=== PATIENT | female | born 1970 | race Caucasian/White ===

== ENCOUNTER 2016-03-14 18:14 | Emergency (ER) | payer MEDICAID ==
[~2016-03-14] VITALS: Ht 167.6 cm; Wt 40.5 kg
[2016-03-14 18:16] VITALS: BP 185/101; PULSE 107; RESP 14; TEMP 98.1; O2SAT 93
--- NOTE | 2016-03-15 23:54 | EKG ---
Date Performed: 03/14/2016 Time Performed: 18:27:18 PTAGE: 45 years EKG: Sinus rhythm LEFT ATRIAL ENLARGEMENT ABNORMAL ECG INTERPRETATION BASED ON A DEFAULT AGE OF 41 YEARS NO PREVIOUS TRACING DOCTOR: Kirt Severino Interpretating Date/Time 03/15/2016 23:47:20
== END 2016-03-14 18:50 | disposition left against medical advice (07) ==
LOC: NED 18:14
DX: Z53.21 Procedure and treatment not carried out due to patient leaving prior to being seen by health care provider (principal); R94.31 Abnormal electrocardiogram [ECG] [EKG]
CPT/HCPCS: 93005; 99281

== ENCOUNTER 2016-06-02 01:17 | Observation (INO) | payer MEDICAID ==
[~2016-06-02] VITALS: Ht 165.1 cm; Wt 47.0 kg
[2016-06-02 01:21] VITALS: BP 170/101; PULSE 138; RESP 20; TEMP 100.7; O2SAT 92
[2016-06-02] MEDS ORDERED: SODIUM CHLOR 0.9% 1000 ML INJ 800 ML IV ONE (02:16)
[2016-06-02] MEDS ORDERED: SODIUM CHLOR 0.9% 1000 ML INJ 1,000 ML IV ONE (02:16)
[2016-06-02] MEDS ORDERED: [UNRECOGNIZED DRUG - CODE] (02:24)
[2016-06-02] MEDS ORDERED: SERO100T PO (02:24)
[2016-06-02] MEDS ORDERED: XANA1TAB2 PO (02:24)
[2016-06-02] MEDS ORDERED: TRAZ150T75 PO (02:24)
[2016-06-02] MEDS ORDERED: ONDANSETRON HCL 4 MG/2 ML VIAL IV ONE (02:30)
[2016-06-02] MEDS ORDERED: ACETAMINOPHEN 650 MG SUPP RECTAL ONE (02:30)
--- NOTE | 2016-06-02 02:54 | RADRPT ---
EXAM DATE/TIME: 06/02/2016 02:31 [facility] COMPARISON: CHEST SINGLE AP, March 09, 2016, 3:02. INDICATIONS : Fever. MEDICAL HISTORY : Lupus. SURGICAL HISTORY : None. ENCOUNTER: Initial ACUITY: 1 day PAIN SCORE: 0/10 LOCATION: Bilateral chest FINDINGS: A single view of the chest demonstrates the lungs to be symmetrically aerated without evidence of mas s, infiltrate or effusion. The cardiomediastinal contours are unremarkable. Osseous structures are intact. CONCLUSION: No acute disease. Darwin Nino MD on June 02, 2016 at 2:52 Board Certified Radiologist. This report was verified electronically.
[2016-06-02 03:04] LABS: BASOPHIL % 0.3 % (0.0-2.0); EOSINOPHIL % 0.2 % (0.0-4.0); HEMATOCRIT 33.3 % (35.0-46.0); HEMO FLAGS DIFF FINAL; LYMPH % 3.5 % (9.0-44.0); LYMPHOCYTE # 0.6 TH/MM3 (1.0-4.8); MEAN CELL VOLUME 84.7 FL (80.0-100.0); MEAN CORPUSCULAR HEMOGLOBIN 30.2 PG (27.0-34.0); MEAN CORPUSCULAR HGB CONC 35.6 % (32.0-36.0); MONO % 4.9 % (0.0-8.0); NEUT % 91.1 % (16.0-70.0); PLATELET COUNT 241 TH/MM3 (150-450); RED BLOOD COUNT 3.93 MIL/MM3 (4.00-5.30); RED CELL DISTRIBUTION WIDTH 14.8 % (11.6-17.2); WHITE BLOOD COUNT 17.5 TH/MM3 (4.0-11.0)
[2016-06-02 03:13] LABS: APTT (PATIENT) 27.9 SEC (24.3-30.1); INTERNATIONAL NORMALIZED RATIO 1.1 RATIO
[2016-06-02 03:18] VITALS: RESP 18; O2SAT 95
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
[2016-06-02] MEDS ORDERED: HYDROmorphone HCL PF 1 MG/ML VIAL IV PUSH ONE (03:30)
[2016-06-02] MEDS ORDERED: diphenhydrAMINE HCL 50 MG/ML VIAL IV PUSH ONE (03:30)
[2016-06-02 03:36] LABS: ALKALINE PHOSPHATASE 190 U/L (45-117); ALT (GPT) 28 U/L (10-53); ANION GAP 9 MEQ/L (5-15); AST (GOT) 31 U/L (15-37); BICARBONATE 23.8 MEQ/L (21.0-32.0); BLOOD UREA NITROGEN 15 MG/DL (7-18); CHLORIDE 102 MEQ/L (98-107); GLOMERULAR FILTRATION RATE 94 ML/MIN (>89); MAGNESIUM 1.4 MG/DL (1.5-2.5); SODIUM (NA) 135 MEQ/L (136-145); TOTAL BILIRUBIN ADULT 0.5 MG/DL (0.2-1.0)
[2016-06-02 03:41] LABS: CREATINE KINASE 64 U/L (26-192); POTASSIUM 3.5 MEQ/L (3.5-5.1)
[2016-06-02 04:00] VITALS: BP 162/92; PULSE 102; RESP 18; O2SAT 96
[2016-06-02] MEDS ORDERED: CEFEPIME INJ 2,000 MG in SODIUM CHLORIDE 0.9% INJ 100 ML IV STA (04:08)
[2016-06-02] MEDS ORDERED: VANCOMYCIN INJ 1,500 MG in SODIUM CHLORID 0.9% 500 ML INJ 500 ML IV STA (04:08)
[2016-06-02] MEDS ORDERED: VANCOMYCIN INJ 1,000 MG in SODIUM CHLOR 0.9% 250 ML INJ 250 ML IV ONE (04:15)
[2016-06-02] MEDS: RESP: ALBUTEROL 2.5 MG/3 ML NEB (SCH) INH (04:24)
[2016-06-02] MEDS ORDERED: SODIUM CHLORIDE 0.9% FLUSH 10 ML FLUSH IV FLUSH PRN (04:30)
[2016-06-02] MEDS ORDERED: Vancomycin Consult Pharmacy 1 EA OTHER SCH (04:30)
[2016-06-02] MEDS ORDERED: NALOXONE HCL 0.4 MG/ML AMP IV PRN (04:30)
[2016-06-02 07:13] VITALS: BP 107/56; PULSE 87; RESP 18; O2SAT 95
[2016-06-02 07:43] LABS: BLOOD, URINE NEG (NEG); GLUCOSE,URINE NEG (NEG); HYALINE CAST, URINE 8 /lpf (RARE); KETONE, URINE NEG (NEG); MUCUS URINE MANY /lpf (OCC); NITRITE,URINE NEG (NEG); SQUAMOUS EPITHELIAL CELL URINE 12 /hpf (0-5); URINE COLOR YELLOW (YELLW/STRAW)
[2016-06-02 07:47] LABS: COMMENT (UR) CATH-CULT NOT IND; CULTURE IF INDICATED CATH CULTURE NOT IND
[2016-06-02] MEDS ORDERED: SODIUM CHLORIDE 0.9% FLUSH 10 ML FLUSH IV FLUSH SCH (09:00)
[2016-06-02] MEDS ORDERED: ENOXAPARIN SODIUM 40 MG/0.4 ML SYRINGE SQ SCH (09:00)
[2016-06-02] MEDS ORDERED: ACETAMINOPHEN 325 MG TAB PO PRN (10:45)
--- NOTE | 2016-06-02 13:57 | EKG ---
Date Performed: 06/02/2016 Time Performed: 02:14:17 PTAGE: 46 years EKG: SINUS TACHYCARDIA ABNORMAL RHYTHM ECG Compared to the PREVIOUS TRACING sinus rate has increased PREVIOUS TRACIN03/14/2016 18.27 DOCTOR: Grey Anders Interpretating Date/Time 06/02/2016 13:56:52
[2016-06-02] MEDS ORDERED: CEFEPIME INJ 2,000 MG in SODIUM CHLORIDE 0.9% INJ 100 ML IV SCH (17:00)
[2016-06-02] MEDS ORDERED: VANCOMYCIN 1,000 MG/NS 250 ML IV SCH ×2 (18:00)
[2016-06-04] MEDS ORDERED: PHARMACY ORDERED LAB XX ONE (05:45)
== END 2016-06-04 06:26 | disposition home or self-care (01) ==
LOC: NEPE 01:17 → NEDA 04:29 → INTOOBSV 04:29 → NEDA 10:38
PROVIDERS: ADMIT Family Medicine; ATTEND Family Medicine
DX: F19.10 Other psychoactive substance abuse, uncomplicated (principal); R20.9 Unspecified disturbances of skin sensation; J44.9 Chronic obstructive pulmonary disease, unspecified; I25.2 Old myocardial infarction; Z86.73 Personal history of transient ischemic attack (TIA), and cerebral infarction without residual deficits; Z85.89 Personal history of malignant neoplasm of other organs and systems; Z86.19 Personal history of other infectious and parasitic diseases; Z72.0 Tobacco use; M32.9 Systemic lupus erythematosus, unspecified; B19.20 Unspecified viral hepatitis C without hepatic coma
CPT/HCPCS: 71010; 80053; 81001; 82550; 83605; 83690; 83735; 84484; 85025; 85610; 85730; 87040; 93005; 94640; 94664; 96361; 96374; 96375; 99285; G0378; J0692; J1170; J1200; J2405; J3370; J7030; J7040; J7613

== ENCOUNTER 2016-11-07 00:46 | Inpatient (IN) | payer MEDICAID ==
[2016-11-07] VITALS (7 sets, daily range): BP systolic 105–161; BP diastolic 54–78; PULSE 93–119; RESP 16–32; TEMP 98.4–99.2; O2SAT 94–98
[~2016-11-07 00:46] MED LIST: SERO100T PO; TRAZ150T75 PO; XANA1TAB2 PO; [UNRECOGNIZED DRUG - CODE]
[2016-11-07] MEDS ORDERED: IOHEXOL 350 MG/ML 10 ML VIAL (for RAD DIAG) IVCONTRAST ONE (00:47)
[2016-11-07] MEDS ORDERED: SODIUM CHLOR 0.9% 1000 ML INJ 800 ML IV ONE (00:50)
[2016-11-07] MEDS ORDERED: CEFEPIME INJ 2,000 MG in SODIUM CHLORIDE 0.9% INJ 100 ML IV STA (00:50)
[2016-11-07] MEDS ORDERED: SODIUM CHLOR 0.9% 1000 ML INJ 1,000 ML IV ONE (00:50)
[2016-11-07] MEDS ORDERED: VANCOMYCIN INJ 1,000 MG in SODIUM CHLOR 0.9% 250 ML INJ 250 ML IV STA (00:50)
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
--- NOTE | 2016-11-07 02:08 | RADRPT ---
EXAM DATE/TIME: 11/07/2016 01:49 [facility] COMPARISON: CHEST SINGLE AP, June 02, 2016, 2:31. INDICATIONS : Short of breath. MEDICAL HISTORY : Lupus. SURGICAL HISTORY : None. ENCOUNTER: Initial ACUITY: 1 day PAIN SCORE: 0/10 LOCATION: Bilateral chest FINDINGS: Portable AP view of the chest demonstrates a normal-sized cardiac silhouette. No effusion, consolidat ion, or pneumothorax is visualized. The bones and soft tissues demonstrate no acute abnormality. Ther e is a nipple shadow on the left. CONCLUSION: No acute cardiopulmonary abnormality is identified. Clayton Corley MD on November 07, 2016 at 2:05 Board Certified Radiologist. This report was verified electronically.
[2016-11-07 02:17] LABS: BACTERIA, URINE RARE /hpf; BLOOD, URINE NEG (NEG); GLUCOSE,URINE NEG (NEG); KETONE, URINE NEG (NEG); NITRITE,URINE NEG (NEG); PH, URINE 7.5 (5.0-8.5); URINE COLOR YELLOW (YELLW/STRAW)
[2016-11-07 02:18] LABS: COMMENT (UR) CATH-CULTURE IND; CULTURE IF INDICATED CATH CULTURE IND
[2016-11-07 02:21] LABS: BASOPHIL % 0.2 % (0.0-2.0); EOSINOPHIL % 0.1 % (0.0-4.0); HEMATOCRIT 44.1 % (35.0-46.0); HEMO FLAGS DIFF FINAL; LYMPH % 2.8 % (9.0-44.0); LYMPHOCYTE # 0.3 TH/MM3 (1.0-4.8); MEAN CELL VOLUME 87.3 FL (80.0-100.0); MEAN CORPUSCULAR HEMOGLOBIN 29.4 PG (27.0-34.0); MEAN CORPUSCULAR HGB CONC 33.7 % (32.0-36.0); MONO % 0.3 % (0.0-8.0); NEUT % 96.6 % (16.0-70.0); PLATELET COUNT 299 TH/MM3 (150-450); RED BLOOD COUNT 5.05 MIL/MM3 (4.00-5.30); RED CELL DISTRIBUTION WIDTH 16.3 % (11.6-17.2); WHITE BLOOD COUNT 10.3 TH/MM3 (4.0-11.0)
[2016-11-07 02:32] LABS: ALT (GPT) 40 U/L (10-53); ANION GAP 9 MEQ/L (5-15); AST (GOT) 77 U/L (15-37); BICARBONATE 26.9 MEQ/L (21.0-32.0); BLOOD UREA NITROGEN 19 MG/DL (7-18); CHLORIDE 104 MEQ/L (98-107); GLOMERULAR FILTRATION RATE 50 ML/MIN (>89); POTASSIUM 3.1 MEQ/L (3.5-5.1); SODIUM (NA) 140 MEQ/L (136-145)
[2016-11-07 02:35] LABS: ALKALINE PHOSPHATASE 394 U/L (45-117); TOTAL BILIRUBIN ADULT 0.9 MG/DL (0.2-1.0)
[2016-11-07] MEDS ORDERED: LORazepam 2 MG/ML VIAL IV PUSH ONE (04:00)
[2016-11-07 04:12] LABS: LACTIC ACID GHOST NOT REPORTABLE
--- NOTE | 2016-11-07 04:36 | RADRPT ---
EXAM DATE/TIME: 11/07/2016 03:59 [facility] COMPARISON: No previous studies available for comparison. INDICATIONS : Abdominal pain with diarrhea. IV CONTRAST: 70 cc Omnipaque 350 (iohexol) IV ORAL CONTRAST: No oral contrast ingested. RADIATION DOSE: 4.79 CTDIvol (mGy) MEDICAL HISTORY : Lupus. Chronic obstructive pulmonary disease. Myocardial infarction.CVA. Throat cancer. Substance abu se. Hepatitis C. SURGICAL HISTORY : Cholecystectomy. Oopherectomy. ENCOUNTER: Initial ACUITY: 1 day PAIN SCALE: 6/10 LOCATION: Bilateral abdomen TECHNIQUE: Volumetric scanning of the abdomen and pelvis was performed. Using automated exposure control and ad justment of the mA and/or kV according to patient size, radiation dose was kept as low as reasonably achievable to obtain optimal diagnostic quality images. DICOM format image data is available electro nically for review and comparison. FINDINGS: There is respiratory motion artifact. LOWER LUNGS: The visualized lower lungs are clear. LIVER: Homogeneous density without lesion. There is no dilation of the biliary tree. There has been prior cholecystectomy clips in the gallbladder fossa. Possible mild periportal edema. SPLEEN: Normal size without lesion. PANCREAS: Within normal limits. KIDNEYS: Normal in size and shape. There is no mass, stone or hydronephrosis. ADRENAL GLANDS: Within normal limits. VASCULAR: There is no aortic aneurysm. BOWEL/MESENTERY: Stomach is mildly distended and second and proximal third portion the duodenum are mildly dilated. Re maining small bowel demonstrates no definite abnormality. No colon abnormality is appreciated. There is no free intraperitoneal air or fluid. ABDOMINAL WALL: Within normal limits. RETROPERITONEUM: There is no lymphadenopathy. BLADDER: No wall thickening or mass. REPRODUCTIVE: Within normal limits. There is a clip in the left pelvis. INGUINAL: There is no lymphadenopathy or hernia. MUSCULOSKELETAL: No acute abnormality. CONCLUSION: 1. No definite abnormality is identified to explain the clinical symptoms. There may be mild periport al edema. 2. Mildly distended stomach and proximal duodenum. Clayton Corley MD on November 07, 2016 at 4:30 Board Certified Radiologist. This report was verified electronically.
--- NOTE | 2016-11-07 04:38 | RADRPT ---
EXAM DATE/TIME: 11/07/2016 03:59 [facility] COMPARISON: No previous studies available for comparison. INDICATIONS : Osteomyelitis. RADIATION DOSE: CTDIvol (mGy) ; Reconstructed from previous dataset, no dose MEDICAL HISTORY : Chronic obstructive pulmonary disease. Myocardial infarction. Lupus.Hepatitis C. Substance abuse. CVA . Throat cancer. SURGICAL HISTORY : Cholecystectomy. Oophorectomy. ENCOUNTER: Initial ACUITY: 1 day PAIN SCALE: 6/10 LOCATION: lumbar TECHNIQUE: Volumetric scanning of the lumbar spine was performed. Multiplanar reconstructions in the sagittal, coronal and oblique axial planes were performed. Using automated exposure control and adjustment of the mA and/or kV according to patient size, radiation dose was kept as low as reasonably achievable t o obtain optimal diagnostic quality images. DICOM format image data is available electronically for review and comparison. FINDINGS: VERTEBRAE: Normal vertebral body height. No fracture or compression deformity. ALIGNMENT: There is no anterolisthesis or retrolisthesis. T12-L1: No disc herniation, canal stenosis, or neural foraminal stenosis is identified. L1-L2: No disc herniation, canal stenosis, or neural foraminal stenosis is identified. L2-L3: No disc herniation, canal stenosis, or neural foraminal stenosis is identified. L3-L4: No disc herniation, canal stenosis, or neural foraminal stenosis is identified. L4-L5: No disc herniation, canal stenosis, or neural foraminal stenosis is identified. L5-S1: No disc herniation, canal stenosis, or neural foraminal stenosis is identified. CONCLUSION: 1. There are no findings to indicate osteomyelitis or discitis. 2. No canal stenosis is identified. Clayton Corley MD on November 07, 2016 at 4:35 Board Certified Radiologist. This report was verified electronically.
--- NOTE | 2016-11-07 04:54 | RADRPT ---
EXAM DATE/TIME: 11/07/2016 04:04 [place] COMPARISON: No previous studies available for comparison. INDICATIONS : Osteomyelitis. RADIATION DOSE: 30.87 CTDIvol (mGy) MEDICAL HISTORY : Chronic obstructive pulmonary disease. Myocardial infarction. Lupus.Substance abuse. CVA. Hepatitis C . Throat cancer. SURGICAL HISTORY : Cholecystectomy. Oophorectomy. ENCOUNTER: Initial ACUITY: 1 day PAIN SCALE: 6/10 LOCATION: thoracic TECHNIQUE: Volumetric scanning of the thoracic spine was performed. Multiplanar reconstructions in the sagittal , coronal and oblique axial planes were performed. Using automated exposure control and adjustment o f the mA and/or kV according to patient size, radiation dose was kept as low as reasonably achievable to obtain optimal diagnostic quality images. DICOM format image data is available electronically f or review and comparison. FINDINGS: There is abnormal diffuse increased density within the T6 and T7 vertebral bodies. There is height lo ss of both vertebral bodies with fusion between the vertebral bodies. There are endplate osteophytes. The height loss and fusion results in kyphotic hyperangulation at this level. There is a 14 mm lucen t area within the right T7 vertebral body which may represent a hemangioma. There is decreased disc h eight with endplate osteophytes at C6-C7. T1-T2: No disc herniation, canal stenosis, or neural foraminal stenosis is identified. T2-T3: No disc herniation, canal stenosis, or neural foraminal stenosis is identified. T3-T4: No disc herniation, canal stenosis, or neural foraminal stenosis is identified. T4-T5: No disc herniation, canal stenosis, or neural foraminal stenosis is identified. T5-T6: No disc herniation, canal stenosis, or neural foraminal stenosis is identified. T6-T7: No disc herniation, canal stenosis, or neural foraminal stenosis is identified. T7-T8: No disc herniation, canal stenosis, or neural foraminal stenosis is identified. T8-T9: No disc herniation, canal stenosis, or neural foraminal stenosis is identified. T9-T10: No disc herniation, canal stenosis, or neural foraminal stenosis is identified. T10-T11: No disc herniation, canal stenosis, or neural foraminal stenosis is identified. T11-T12: No disc herniation, canal stenosis, or neural foraminal stenosis is identified. T12-L1: No disc herniation, canal stenosis, or neural foraminal stenosis is identified. There is mild emphysema in the upper lobes. CONCLUSION: 1. Abnormal increased density with height loss and osseous fusion between the T6 and T7 vertebral bod ies. The appearance suggests old discitis osteomyelitis. There is associated focal kyphosis at this l evel. 2. Remaining levels demonstrate no acute finding. Clayton Corley MD on November 07, 2016 at 4:47 Board Certified Radiologist. This report was verified electronically.
[2016-11-07] MEDS ORDERED: BISACODYL 10 MG SUPP RECTAL PRN (05:00)
[2016-11-07] MEDS ORDERED: LACTULOSE SYRUP 20 GM/30 ML CUP PO PRN (05:00)
[2016-11-07] MEDS ORDERED: ACETAMINOPHEN 325 MG TAB PO PRN (05:00)
[2016-11-07] MEDS ORDERED: SENNOSIDES 8.6 MG TAB PO PRN (05:00)
[2016-11-07] MEDS ORDERED: ONDANSETRON HCL 4 MG/2 ML VIAL IVP PRN (05:00)
[2016-11-07] MEDS ORDERED: MAGNESIUM HYDROXIDE SUSP 30 ML CUP PO PRN (05:00)
[2016-11-07] MEDS ORDERED: POTASSIUM CHLORIDE 20 MEQ CONTROLLED RELEASE TAB PO ONE (05:00)
[2016-11-07] MEDS ORDERED: SODIUM CHLORIDE 0.9% FLUSH 10 ML FLUSH IV FLUSH PRN (05:00)
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
[2016-11-07] MEDS: SODIUM CHLOR 0.9% 1000 ML INJ 1,000 ML IV SCH ×2 (07:57→17:25)
[2016-11-07] MEDS: SODIUM CHLORIDE 0.9% FLUSH 10 ML FLUSH IV FLUSH SCH ×2 (09:00→19:57)
[2016-11-07] MEDS: DOCUSATE SODIUM 50 MG/SENNA 8.6 MG TAB PO SCH ×2 (09:00→19:57)
[2016-11-07] MEDS: LORazepam 2 MG/ML VIAL IV PUSH PRN ×2 (10:35→17:57)
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
[2016-11-07] MEDS: metroNIDAZOLE 500 MG TAB PO SCH ×2 (14:18→22:12)
--- NOTE | 2016-11-07 15:23 | EKG ---
Date Performed: 11/07/2016 Time Performed: 00:53:58 PTAGE: 46 years EKG: SINUS TACHYCARDIA WITH SHORT [place] INTERVAL WITH OCCASIONAL SUPRAVENTRICULAR PREMATURE COMPLEX ES POSSIBLE LEFT ATRIAL ENLARGEMENT INDETERMINATE AXIS ST DEVIATION AND MODERATE T-WAVE ABNORMALITY, CONSIDER ANTERIOR ISCHEMIA. When compared to previous tracing, sinus rate has slowed. Anterior T wave changes are new, consider ischemia. ABNORMAL ECG PREVIOUS TRACING : 06/02/2016 02.14 DOCTOR: Grey Anders Interpretating Date/Time 11/07/2016 15:22:45
[2016-11-08] MEDS: LORazepam 2 MG/ML VIAL IV PUSH PRN ×5 (00:10→23:16)
[2016-11-08] MEDS: SODIUM CHLOR 0.9% 1000 ML INJ 1,000 ML IV SCH ×3 (00:17→21:00)
[2016-11-08 03:52] LABS: C. DIFF EPI 027 PRESUMPTIVE NEGATIVE (NEGATIVE)
[2016-11-08 04:11] VITALS: BP 101/59; PULSE 87; RESP 17; TEMP 98; O2SAT 97
[2016-11-08 05:16] LABS: AUTOMATED NEUTROPHIL # 31.3 TH/MM3 (1.8-7.7); BASOPHIL % 0.1 % (0.0-2.0); EOSINOPHIL # 0.1 TH/MM3 (0-0.4); EOSINOPHIL % 0.2 % (0.0-4.0); HEMATOCRIT 33.3 % (35.0-46.0); LYMPHOCYTE # 2.1 TH/MM3 (1.0-4.8); MEAN CELL VOLUME 87.5 FL (80.0-100.0); MEAN CORPUSCULAR HGB CONC 33.1 % (32.0-36.0); MONO % 3.4 % (0.0-8.0); NEUT % 90.3 % (16.0-70.0); PLATELET COUNT 225 TH/MM3 (150-450); RED BLOOD COUNT 3.81 MIL/MM3 (4.00-5.30); RED CELL DISTRIBUTION WIDTH 16.6 % (11.6-17.2); WHITE BLOOD COUNT 34.7 TH/MM3 (4.0-11.0)
[2016-11-08] MEDS: metroNIDAZOLE 500 MG TAB PO SCH ×3 (05:16→21:14)
[2016-11-08 05:41] LABS: ANION GAP 7 MEQ/L (5-15); AST (GOT) 26 U/L (15-37); BLOOD UREA NITROGEN 20 MG/DL (7-18); CHLORIDE 111 MEQ/L (98-107); GLOMERULAR FILTRATION RATE 84 ML/MIN (>89); POTASSIUM 3.2 MEQ/L (3.5-5.1); SODIUM (NA) 141 MEQ/L (136-145)
[2016-11-08 05:44] LABS: ALKALINE PHOSPHATASE 192 U/L (45-117); ALT (GPT) 23 U/L (10-53); TOTAL BILIRUBIN ADULT 0.3 MG/DL (0.2-1.0)
[2016-11-08 05:49] LABS: HEMO FLAGS AUTO DIFF
[2016-11-08] MEDS ORDERED: POTASSIUM CHLORIDE 20 MEQ CONTROLLED RELEASE TAB PO ONE (06:45)
[2016-11-08 07:35] VITALS: BP 112/71; PULSE 87; RESP 16; TEMP 98.1; O2SAT 95
[2016-11-08 08:01] LABS: BANDS 12 % (0-6); NEUTROPHIL # MANUAL DIFF 32.6 TH/MM3 (1.8-7.7); PLATELET ESTIMATE SMEAR NORMAL (NORMAL); PLATELET MORPHOLOGY NORMAL (NORMAL); POLYS (SEG NEUTROPHILS) 82 % (16-70); SCAN/DIFF FINAL DIFF MANUAL; WBC DIFF SAMPLE 100
[2016-11-08] MEDS: MAGNESIUM SULFATE 1 GM PREMIX 100 ML IV SCH ×2 (08:26→09:32)
[2016-11-08] MEDS: DOCUSATE SODIUM 50 MG/SENNA 8.6 MG TAB PO SCH ×2 (09:00→21:14)
[2016-11-08] MEDS: SODIUM CHLORIDE 0.9% FLUSH 10 ML FLUSH IV FLUSH SCH ×2 (09:00→21:00)
--- NOTE | 2016-11-08 09:15 | HHI.PR ---
Subjective Remarks Follow up for abdominal pain, diarrhea. The patient reports feeling better today. Denies any fevers/chills. Abdominal pain improved. She had 2 large BMs yesterday which started out as diarrhea, now becoming more formed. Denies nausea /vomiting. Denies any worsening back pain. Denies any chest pain, shortness of breath, cough, or congestion. She is requesting regular diet. Of note, multiple records received from [facility], in chart. Objective Vitals Vital Signs Date Time Temp Pulse Resp B/P (MAP) Pulse Ox O2 Delivery O2 Flow Rate FiO2 11/08/16 07:35 98.1 87 16 112/71 (85) 95 11/08/16 04:11 98.0 87 17 101/59 (73) 97 11/07/16 23:59 98.9 94 17 108/71 (83) 96 11/07/16 19:57 98.8 93 18 161/69 (99) 94 11/07/16 11:51 98.4 98 19 111/67 (82) 98 I/O 11/07/16 11/07/16 11/07/16 11/08/16 11/08/16 11/08/16 07:00 15:00 23:00 07:00 15:00 23:00 Intake Total 1350 ml 240 ml 942 ml Output Total 350 ml Balance 1350 ml -110 ml 942 ml Intake Oral 240 ml IV Total 1350 ml 942 ml Output Urine Total 350 ml # Voids 1 2 # Bowel Movements 1 1 Result Diagram: 11/08/16 0451 11/08/16 0451 Other Results Records from [facility]: 10/18/16 - Transthoracic Echocardiogram normal left ventricular function, EF 55-60 % Aortic Valve: Aortic valve leaflets are mildly thickened. There is no evidence of aortic regurgitation. There is no evidence of aortic stenosis. There is no aortic vegetation present. Mitral valve: The mitral valve leaflets are mildly thickened. There is mild mitral regurgitation. There is no evidence of mitral stenosis. No vegetation is observed on the mitral valve. Tricuspid valve: The tricuspid valve leaflets are mildly thickened. There is mild to moderate tricuspid regurgitation. The right ventricular systolic pressure is calculated at 41 mmHg. There is no tricuspid stenosis. A mass is visualized on the tricuspid valve which appears consistent with a vegetation. Pulmonic valve: The pulmonic valve is not well-visualized. There is no evidence of pulmonic regurgitation. There is no pulmonic stenosis. Pericardium: Pericardium appears normal. 10/17/16 - CTA chest: No evidence of pulmonary embolus or other acute intrathoracic pathology. Findings again compatible with advanced discitis/ osteomyelitis at T6-7 with interval evolution/healing. 10/17/16 - MRI T-Spine: Interval decrease in the extent of abnormal contrast enhancement involving the T6-7 vertebral bodies, where discitis/osteomyelitis changes were demonstrated on 05/23/16 and 04/30/16. Progressive disk space collapse at the T6/7 level with associated progressive focal kyphosis. Abnormal enhancing ventral epidural soft tissue centered at the T6-7 level, has decreased in extent since the prior exam. No cord compression at this level or elsewhere within the thoracic spine. No new areas of abnormal marrow signal intensity. No thoracic spinal cord pathology demonstrated. Persistent T6-7 neural foraminal stenosis. 10/20/16 - Nuclear medicine scan: Subtle minimal uptake in the thoracic spine likely in the region of the T6-7 vertebral bodies likely corresponds to uptake within previously demonstrated osteomyelitis/discitis at this level. Imaging Last Impressions Thoracic Spine CT 11/07/16255 Signed Impressions: Service Date/Time: Monday, November 07, 2016 04:04 - CONCLUSION: 1. Abnormal increased density with height loss and osseous fusion between the T6 and T7 vertebral bodies. The appearance suggests old discitis osteomyelitis. There is associated focal kyphosis at this level. 2. Remaining levels demonstrate no acute finding. Clayton Corley MD Lumbar Spine CT 11/07/16 0256 Signed Impressions: Service Date/Time: Monday, November 07, 2016 03:59 - CONCLUSION: 1. There are no findings to indicate osteomyelitis or discitis. 2. No canal stenosis is identified. Clayton Corley MD Abdomen/Pelvis CT 11/07/16 0256 Signed Impressions: Service Date/Time: Monday, November 07, 2016 03:59 - CONCLUSION: 1. No definite abnormality is identified to explain the clinical symptoms. There may be mild periportal edema. 2. Mildly distended stomach and proximal duodenum. Clayton Corley MD Chest X-Ray 11/07/16 0050 Signed Impressions: Service Date/Time: Monday, November 07, 2016 01:49 - CONCLUSION: No acute cardiopulmonary abnormality is identified. Clayton Corley MD Objective Remarks GENERAL: Thin cachectic appearing female patient in NAD. SKIN: Warm and dry. No rash. HEENT: Normocephalic. Atraumatic.Pupils equal and round. Mucous membranes pink and moist. CARDIOVASCULAR: Regular rate and rhythm. S1, S2 noted. No murmur appreciated. RESPIRATORY: No accessory muscle use. Clear to auscultation. Breath sounds equal bilaterally. GASTROINTESTINAL: Abdomen soft, non-tender, nondistended. Normoactive bowel sounds x4. MUSCULOSKELETAL: No obvious deformities. Extremities without clubbing, cyanosis , or edema. NEUROLOGICAL: Awake and alert. No obvious cranial nerve deficits. Motor grossly within normal limits. Normal speech. PSYCHIATRIC: Appropriate mood and affect; insight and judgment normal. Medications and IVs Current Medications Medications (Trade) Dose Ordered Sig/Misty Route Start Time Stop Time Status Last Admin Sodium Chloride 1,000 ml @ 100 mls/hr Q10H IV 11/07/16 05:00 11/08/16 00:17 (NS Flush) 2 ml UNSCH PRN IV FLUSH 11/07/16 05:00 (NS Flush) 2 ml BID IV FLUSH 11/07/16 09:00 (Zofran Inj) 4 mg Q6H PRN IVP 11/07/16 05:00 (Tylenol) 650 mg Q6H PRN PO 11/07/16 05:00 (Alissa-Colace) 1 tab BID PO 11/07/16 09:00 (Milk Of Magnesia Liq) 30 ml Q12H PRN PO 11/07/16 05:00 (Senokot) 17.2 mg Q12H PRN PO 11/07/16 05:00 (Dulcolax Supp) 10 mg DAILY PRN RECTAL 11/07/16 05:00 (Lactulose Liq) 30 ml DAILY PRN PO 11/07/16 05:00 (Ativan Inj) 1 mg Q2H PRN IV PUSH 11/07/16 05:00 11/08/16 06:12 (Roxicodone) 5 mg Q6H PRN PO 11/07/16 09:45 11/08/16 06:13 (Flagyl) 500 mg Q8HR PO 11/07/16 14:00 11/08/16 05:16 Magnesium Sulfate/ Dextrose 100 ml @ 100 mls/hr Q1H IV 11/08/16 08:00 11/08/16 09:59 A/P Problem List: (1) Intractable abdominal pain ICD Code: R10.9 - Unspecified abdominal pain (2) IVDU (intravenous drug user) ICD Code: F19.90 - Other psychoactive substance use, unspecified, uncomplicated (3) H/O osteomyelitis ICD Code: Z87.39 - Personal history of other diseases of the musculoskeletal system and connective tissue (4) Lactic acidosis ICD Code: E87.2 - Acidosis (5) Hypokalemia ICD Code: E87.6 - Hypokalemia Assessment and Plan 46-year-old female with a PMH of Anxiety, Lupus, IVDU w/ Dilaudid and Cocaine, h /o Endocarditis and h/o Osteomyelitis/Diskitis who was brought to the ER by EMS secondary to complaints of severe abdominal pain x3 days w/ intermittent episodes of diarrhea. Intractable Abdominal Pain/Diarrhea: CT Abd/Pelvis w/ no acute abnormalities, mildly distended stomach and duodenum, images reviewed by me. Initially on clear liquids, symptoms improved Advanced diet to regular. Continue IVF, antiemetics prn, oxycodone 5mg q6h prn; caution w/ analgesics secondary to IVDU w/ Dilaudid. Cdiff negative. Stool cultures pending. ID empirically initiated abx with Flagyl and started Lactinex. Symptoms improving. Tricuspid Valve Endocarditis: Records reviewed from , 10/18/16 Transthoracic Echocardiogram normal left ventricular function, EF 55-60%, A mass is visualized on the tricuspid valve which appears consistent with a vegetation. Blood cultures in records negative x5days at . Blood cultures here with 1/4 gram variable organism. Consider SHONA? Discussed with ID Dr. Vides. Start on IV Vanco with pharmacy consult. Sepsis: Leukocytosis 35K with tachycardia, source-endocarditis as above. Lactic acid 3.1 --> 1.8. On IVF. Urine culture negative. Blood culture with gram variable organism, continue to follow. Stool with no WBCs, culture pending. ID on board, appreciate recommendations. H/o Discitis/Osteomyelitis: H/o T6-T7 diskitis/osteomyelitis, recent admit to [facility] 10/16/16 w/ MRI T-spine showing improved diskitis/osteomyelitis, evaluated by NxSx w/ conservative management and by ID w/ broad spectrum antibiotics. Pt LEFT AMA prior to completion of therapy. CT T-Spine w/ old chronic diskitis/osteomyelitis of T6-7. Afebrile, no leukocytosis. ID following, appreciate recommendations. IVDU: Ongoing, w/ Dilaudid/Cocaine. H/o Endocarditis. Blood cultures as above. Oxycodone prn. Hypokalemia/Hypomagnesemia: K+ 3.1, Mag 1.6, replaced. Continue to monitor and replace as needed. Tobacco Abuse: Pt counselled. Ativan/NicoDerm prn if needed. DVT Prophylaxis: SCD/Teds. Discharge Planning Admit to inpatient with endocarditis. Megan Silva PA-C Nov 08, 2016 09:15
[2016-11-08 11:37] VITALS: PULSE 88
[2016-11-08 12:26] VITALS: BP 116/76; PULSE 79; RESP 18; TEMP 98.2; O2SAT 97
[2016-11-08] MEDS ORDERED: Vancomycin Consult Pharmacy 1 EA OTHER SCH (12:45)
[2016-11-08] MEDS: REMOVE OLD PATCH T-DERMAL SCH (14:15)
[2016-11-08 14:46] LABS: AUTOMATED NEUTROPHIL # 29.6 TH/MM3 (1.8-7.7); BASOPHIL # 0.1 TH/MM3 (0-0.2); BASOPHIL % 0.2 % (0.0-2.0); EOSINOPHIL # 0.2 TH/MM3 (0-0.4); EOSINOPHIL % 0.5 % (0.0-4.0); HEMATOCRIT 33.5 % (35.0-46.0); LYMPH % 5.1 % (9.0-44.0); LYMPHOCYTE # 1.7 TH/MM3 (1.0-4.8); MEAN CELL VOLUME 87.3 FL (80.0-100.0); MEAN CORPUSCULAR HEMOGLOBIN 27.9 PG (27.0-34.0); MONO % 2.6 % (0.0-8.0); NEUT % 91.6 % (16.0-70.0); PLATELET COUNT 253 TH/MM3 (150-450); RED BLOOD COUNT 3.84 MIL/MM3 (4.00-5.30); RED CELL DISTRIBUTION WIDTH 16.7 % (11.6-17.2); WHITE BLOOD COUNT 32.4 TH/MM3 (4.0-11.0)
[2016-11-08 14:54] LABS: HEMO FLAGS AUTO DIFF
[2016-11-08] MEDS: NICOTINE 21 MG/24 HR PATCH T-DERMAL SCH (15:15)
[2016-11-08] MEDS: VANCOMYCIN INJ 750 MG in SODIUM CHLOR 0.9% 250 ML INJ 250 ML IV SCH (15:16)
[2016-11-08 15:53] VITALS: PULSE 88
[2016-11-08 16:05] LABS: BANDS 6 % (0-6); NEUTROPHIL # MANUAL DIFF 29.8 TH/MM3 (1.8-7.7); POLYS (SEG NEUTROPHILS) 86 % (16-70); WBC DIFF SAMPLE 100
[2016-11-08 16:06] LABS: DOHLE BODIES PRESENT (NONE SEEN); PLATELET ESTIMATE SMEAR NORMAL (NORMAL); PLATELET MORPHOLOGY NORMAL (NORMAL); SCAN/DIFF FINAL DIFF MANUAL
[2016-11-08 20:44] VITALS: BP 145/91; PULSE 86; RESP 18; TEMP 97.8; O2SAT 96
[2016-11-09] MEDS: VANCOMYCIN INJ 750 MG in SODIUM CHLOR 0.9% 250 ML INJ 250 ML IV SCH (03:36)
[2016-11-09] MEDS: LORazepam 2 MG/ML VIAL IV PUSH PRN ×3 (04:14→11:05)
[2016-11-09 04:59] VITALS: BP 160/95; PULSE 77; RESP 18; TEMP 97.8; O2SAT 99
[2016-11-09] MEDS: metroNIDAZOLE 500 MG TAB PO SCH (06:36)
[2016-11-09] MEDS: SODIUM CHLOR 0.9% 1000 ML INJ 1,000 ML IV SCH (06:40)
[2016-11-09] MEDS: NICOTINE 21 MG/24 HR PATCH T-DERMAL SCH (08:09)
[2016-11-09] MEDS: REMOVE OLD PATCH T-DERMAL SCH (08:11)
[2016-11-09] MEDS: DOCUSATE SODIUM 50 MG/SENNA 8.6 MG TAB PO SCH (08:11)
[2016-11-09] MEDS: SODIUM CHLORIDE 0.9% FLUSH 10 ML FLUSH IV FLUSH SCH (08:11)
[2016-11-09 08:14] VITALS: BP 144/96; PULSE 75; RESP 17; TEMP 97.2; O2SAT 96
[2016-11-09 11:55] VITALS: BP 158/95; PULSE 84; RESP 18; TEMP 97.3; O2SAT 97
[2016-11-09] MEDS ORDERED: CEFEPIME INJ 2,000 MG in SODIUM CHLORIDE 0.9% INJ 100 ML IV SCH (13:00)
--- NOTE | 2016-11-09 13:20 | PD.AMA ---
Against Medical Advice Note Diagnosis: (1) Intractable abdominal pain (2) IV drug user Discharge Disposition: Against Medical Advice Pt Condition on Discharge: Stable Recommended Treatment Course It was recommended to patient for patient to continue treatment while hospitalized. Patient was educated extensively on the consequences of not completing treatment without further workup. Due to concerns of infection I recommended the patient stay hospitalized. I told patient that if this is not treated properly infection can spread and may lead to . Patient stated that she understood but still wants to leave AGAINST MEDICAL ADVICE. Patient's nurse was present during the interview. AMA Statement Patient Sonia Bond has decided to leave the hospital against medical advice. This patient has the capacity to refuse care and understands the risks of leaving, including permanent disability and/or , and has had an opportunity to ask questions about her condition. The patient has been informed that she may return for care at any time, and follow up has been arranged/advised. Maricruz Goodman MD Nov 09, 2016 13:20
[2016-11-10] MEDS ORDERED: PHARMACY ORDERED LAB ONE (02:45)
== END 2016-11-09 13:15 | disposition left against medical advice (07) | DRG 871 ==
LOC: NEPC 00:46 → NEDA 04:59 → NEPFCDU 06:50 → OBSVTOIN 11-08 12:33
PROVIDERS: ADMIT Family Medicine; ATTEND Family Medicine
DX: A41.9 Sepsis, unspecified organism (principal); I33.0 Acute and subacute infective endocarditis; E87.2 Acidosis; M32.9 Systemic lupus erythematosus, unspecified; E83.42 Hypomagnesemia; J44.9 Chronic obstructive pulmonary disease, unspecified; E86.0 Dehydration; B19.20 Unspecified viral hepatitis C without hepatic coma; F41.9 Anxiety disorder, unspecified; F19.90 Other psychoactive substance use, unspecified, uncomplicated; R19.7 Diarrhea, unspecified; E87.6 Hypokalemia; R10.9 Unspecified abdominal pain; Z85.21 Personal history of malignant neoplasm of larynx; Z87.891 Personal history of nicotine dependence; Z86.73 Personal history of transient ischemic attack (TIA), and cerebral infarction without residual deficits; I25.2 Old myocardial infarction
CPT/HCPCS: 71010; 72128; 72131; 74177; 80053; 80307; 81001; 83605; 83690; 83735; 85007; 85025; 85027; 87040; 87077; 87086; 87153; 87186; 87205; 87493; 87506; 93005; 96365; 96375; 96376; G0378; J0692; J2060; J3370; J3475; J7030; J7050; Q9967